=== PATIENT | female | born 1945 | race Caucasian/White ===

== ENCOUNTER 2017-05-09 20:28 | Inpatient (IN) | payer OTHER, BC ==
[~2017-05-09] VITALS: Ht 160 cm; Wt 52.1 kg
[~2017-05-09 20:28] MED LIST: COUMADIN1 MG PO; FERRO-TIME325 MG PO; OXYCONTIN20 MG PO; ROXICODONE5 MG PO; SENOKOT S,PE1 TABLET PO; TENORMIN25 MG PO; THERAGRAN1 TABLET PO; TYLENOL REGULA325 MG PO
[2017-05-09 21:35] LABS: HEMATOCRIT 41.3 % (36.0-46.0); MCH 28.1 PG (29.0-34.0); MCHC 32.7 G/DL (30.0-36.0); MCV 85.9 FL (83-99); MEAN PLAT.VOLUME 8.5 uM^3 (9.5-12.4); PLATELET COUNT 287 K/uL (156-360); RBC DIS.WIDTH-CV 12.9 % (11.8-14.6); RBC DIS.WIDTH-SD 40.7 % (39-53); RED BLOOD COUNT 4.81 M/uL (3.80-5.20)
[2017-05-09 21:46] LABS: CHLORIDE 98 mEq/L (99-109); POTASSIUM 2.8 mEq/L (3.7-5.4); SODIUM 140 mEq/L (136-147)
[2017-05-09 21:48] LABS: GLUCOSE 122 mg/dL (70-99)
[2017-05-09 21:49] LABS: ANION GAP 12 MEQ/L (2-14)
[2017-05-09 21:51] LABS: SERUM ETHYL ALCOHOL < 10 mg/dL
[2017-05-09 21:52] LABS: GFR ESTIMATE (CALCULATED) > 59 mL/min/
[2017-05-09 21:53] LABS: UREA NITROGEN (BUN) 14 mg/dL (9-23)
[2017-05-09 21:55] LABS: SALICYLATE < 5.0 MG/DL (15-30)
[2017-05-09 22:55] VITALS: BP 140/76
[2017-05-09 23:08] LABS: AMPHETAMINE NEGATIVE (500 ng/mL); BARBITURATES NEGATIVE (200 ng/mL); BENZODIAZEPINES NEGATIVE (150 ng/mL); COCAINE NEGATIVE (150 ng/mL); METHADONE NEGATIVE (200 ng/mL); METHAMPHETAMINE NEGATIVE (500 ng/mL); OPIATES (MORPHINE) NEGATIVE (100 ng/mL); OXYCODONE NEGATIVE (100 ng/mL); PHENCYCLIDINE NEGATIVE (25 ng/mL); PROPOXYPHENE NEGATIVE (300 ng/mL); THC CANNABINOIDS NEGATIVE (50 ng/mL); TRICYCLIC ANTIDEPRESSANTS NEGATIVE (300 ng/mL)
[2017-05-09 23:11] LABS: INTERNAL CONTROLS VALID? YES
[2017-05-10 07:41] VITALS: BP 127/72
[2017-05-10] MEDS ORDERED: EFFEXOR XR75 MG PO (12:44)
[2017-05-10 15:20] VITALS: BP 127/75
[2017-05-10 15:22] VITALS: BP 130/69
[2017-05-11 07:47] VITALS: BP 111/63
[2017-05-11 15:49] VITALS: BP 124/66
[2017-05-12 07:37] VITALS: BP 114/65
[2017-05-12 15:21] VITALS: BP 125/62
[2017-05-13 07:30] VITALS: BP 126/80
[2017-05-13 15:24] VITALS: BP 113/62
[2017-05-14 07:40] VITALS: BP 115/62
[2017-05-14 16:00] VITALS: BP 96/53
[2017-05-15 07:40] VITALS: BP 112/63
[2017-05-15 15:42] VITALS: BP 102/62
[2017-05-16 08:10] VITALS: BP 110/63
[2017-05-16 15:27] VITALS: BP 121/61
[2017-05-17 07:22] VITALS: BP 106/57
[2017-05-17 15:41] VITALS: BP 118/60
[2017-05-18 07:49] VITALS: BP 113/69
[2017-05-18 15:40] VITALS: BP 107/62
[2017-05-19 07:53] VITALS: BP 98/60
[2017-05-19 15:28] VITALS: BP 106/59
[2017-05-20 07:48] VITALS: BP 108/62
[2017-05-20 16:15] VITALS: BP 99/58
[2017-05-21 08:57] VITALS: BP 109/66
[2017-05-21 16:41] VITALS: BP 130/67
[2017-05-22 07:49] VITALS: BP 105/67
[2017-05-22] MEDS ORDERED: BUSPAR15 MG PO (10:03)
[2017-05-22] MEDS ORDERED: EFFEXOR XR75 MG PO (10:03)
[2017-05-22] MEDS ORDERED: TENORMIN25 MG PO (10:03)
[2017-05-22] MEDS ORDERED: LATUDA40 MG PO (10:03)
[2017-05-22] MEDS ORDERED: LATUDA20 MG PO (10:11)
== END 2017-05-22 11:08 | disposition home or self-care (01) | DRG 885 ==
LOC: EME 20:28 → EDOF 22:15 → 1WEST 22:15 → ENRESERV 22:34 → 1WEST 22:45
PROVIDERS: Emergency Medicine
DX: F31.4 Bipolar disorder, current episode depressed, severe, without psychotic features (principal); Z91.14 Patient's other noncompliance with medication regimen; R63.0 Anorexia; R45.851 Suicidal ideations; Z68.1 Body mass index [BMI] 19.9 or less, adult; F41.9 Anxiety disorder, unspecified; I10 Essential (primary) hypertension; F82 Specific developmental disorder of motor function; E87.6 Hypokalemia
CPT/HCPCS: 80048; 82306; 82607; 82746; 84443; 85027; 90837; 97150 GO; 97165 GO; 97530 GO; 99281; 99285; G0480